=== PATIENT | female | born 1960 | race Caucasian/White ===

== ENCOUNTER 2024-01-02 07:06 | Day surgery (SDC) | payer OTHER, SELFPAY ==
[2023-12-25 08:08] VITALS: BMI 28.6
[2023-12-25 08:50] LABS: % Basophils 0.8 % (0-2); % Eosinophils 3.1 % (0-6); % Lymphocytes 28.9 % (20.5-51.1); % Monocytes 8.6 % (1.7-9.3); % Neutrophils 58.6 % (42.2-75.2); Absolute Basophils 0.1 10^3/uL (0-0.2); Absolute Eosinophils 0.2 10^3/uL (0-0.7); Absolute Lymphocytes 1.8 10^3/uL (1.2-3.4); Absolute Monocytes 0.5 10^3/uL (0.1-0.6); Absolute Neutrophils 3.6 10^3/uL (1.4-6.5); Hematocrit 39.9 % (37.0-47.0); Hemoglobin 13.6 g/dL (12.0-16.0); Mean Corp Hgb Conc. 34.1 g/dL (33.0-37.0); Mean Corpuscular Hgb 31.6 pg (27.0-31.0); Mean Corpuscular Volume 92.8 fL (81.0-99.0); Mean Platelet Volume 9.9 fL (7.4-10.4); Nucleated Red Blood Cells % 0 %; Platelet Count 213 10^3/uL (130-400); Red Cell Dist. Width 12.5 % (11.5-14.5); White Blood Cell Count 6.1 10^3/uL (4.8-10.8)
[2023-12-25 09:15] LABS: Blood Urea Nitrogen 24 mg/dl (7-17); Calcium 9.6 mg/dl (8.4-10.2); Carbon Dioxide 29 mmol/L (22-30); Chloride 103 mmol/L (98-107); Estimated Creatinine Clearance 86 ml/min; Glucose 73 mg/dl (70-99); Potassium 4.6 mmol/L (3.5-5.1); Sodium 137 mmol/L (135-145); eGFR > 60.00
[2024-01-02] VITALS (9 sets, daily range): BP systolic 122–149; BP diastolic 58–76; BMI 28.6
[2024-01-02] MEDS: CELEBREX 200 MG PO (10:16)
[2024-01-02] MEDS: TYLENOL 1000 MG PO (10:17)
[2024-01-02] MEDS: NORMOSOL-R 1000 IV (10:22)
== END 2024-01-02 15:35 | disposition home or self-care (01) ==
LOC: SDS 07:06
PROVIDERS: ATTENDING PHYSICIAN Orthopaedic Surgery; FAMILY PHYSICIAN Physician Assistant Medical
DX: S83.242A Other tear of medial meniscus, current injury, left knee, initial encounter (principal); X58.XXXA Exposure to other specified factors, initial encounter
CPT/HCPCS: 29881; 36415; 80048; 85025; 93005

== ENCOUNTER → 2024-11-09 14:26 | Outpatient (REF) | payer OTHER, SELFPAY | LOC: WDC 14:26 | PROVIDERS: ATTENDING PHYSICIAN Physician Assistant Medical | DX: Z12.31 Encounter for screening mammogram for malignant neoplasm of breast (principal) | CPT/HCPCS: 77063; 77067 ==

== ENCOUNTER → 2025-04-14 13:00 | Outpatient (REF) | payer OTHER, SELFPAY | LOC: HWEVLT 13:00 | PROVIDERS: ATTENDING PHYSICIAN Radiology Vascular & Interventional Radiology | DX: I83.893 Varicose veins of bilateral lower extremities with other complications (principal) | CPT/HCPCS: 93970 ==